=== PATIENT | male | born 1940 | race Caucasian/White ===

== ENCOUNTER 2018-02-18 06:38 | Emergency (ER) | payer MEDICARE ==
[2018-02-18] MEDS ORDERED: Ketorolac Tromethamine 30 MG/ML VIAL ONE (07:15)
[2018-02-18] MEDS ORDERED: Diazepam 5 MG TAB ONE (07:15)
--- NOTE | 2018-02-18 08:47 | CT ---
CT LUMBAR SPINE WITHOUT CONTRAST: Date: 02/18/18 HISTORY: Chronic pain. COMPARISON: None. 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 Multiple calcifications of the right kidney. Multiple hypodensit ies. No retroperitoneal adenopathy. Aortic contour is nonaneurysmal. There is a compression fracture of L1 which does extend to the anterior vertebral body through the villegas perior end plate, which does extend to the posterior vertebral body wall. There is 1.0 mm retrolisthe sis. 10% anterior height loss. There is narrowing of the L3-L5 interspinous space with sclerosis and some cortical cyst formation. C ircumferential disc bulge at L3-4, L4-5, and L5-S1. Multilevel neural foraminal narrowing. IMPRESSION: Relatively acute L1 compression fracture extending from the anterior to the posterior vertebral solano with 10% anterior height loss and 1.0 mm retrolisthesis. POS: [facility]
== END 2018-02-18 08:30 | disposition home or self-care (01) ==
LOC: SCSER 06:38
DX: S32.019A Unspecified fracture of first lumbar vertebra, initial encounter for closed fracture (principal); I10 Essential (primary) hypertension; Z79.899 Other long term (current) drug therapy; W19.XXXA Unspecified fall, initial encounter
CPT/HCPCS: 72131; 96372; J1885

== ENCOUNTER 2018-03-27 15:34 | Outpatient (CLI) | payer MEDICARE ==
--- NOTE | 2018-03-27 16:54 | RAD ---
TWO VIEWS LUMBAR SPINE: 03/27/18 INDICATION: Low back pain. COMPARISON: Prior CT lumbar spine dated 02/18/18. FINDINGS: The mild superior end plate compression fracture of L1 appears unchanged from the comparison CT. Mult ilevel spondylosis is stable. Spinal alignment appears within normal limits. IMPRESSION: 1. Stable mild superior end plate compression abnormality of L1. 2. Stable spondylosis of the lumbar spine. POS: [facility]
== END 2018-03-27 15:35 | disposition home or self-care (01) ==
LOC: TBSIIMAG 15:34
PROVIDERS: ATTEND Neurological Surgery
DX: S22.008A Other fracture of unspecified thoracic vertebra, initial encounter for closed fracture (principal); M47.816 Spondylosis without myelopathy or radiculopathy, lumbar region; R93.7 Abnormal findings on diagnostic imaging of other parts of musculoskeletal system
CPT/HCPCS: 72100

== ENCOUNTER 2018-05-22 09:08 | Outpatient (CLI) | payer MEDICARE ==
--- NOTE | 2018-05-22 10:14 | RAD ---
LUMBAR SPINE TWO VIEWS: History: Follow up compression fracture. Unspecified thoracic vertebrae. Comparison: Lumbar films, 03-27-18 FINDINGS: The compression deformity involving the L1 vertebra is again noted. There is superior endplate compre ssion with loss of central and anterior height estimated at 25-30%. The compression deformity at this vertebra appears stable when compared to 03-27-18. No significant retropulsion. The other lumbar vertebrae maintain normal height. Degenerative changes are again noted. IMPRESSION: Compression deformity at L1 appears stable. POS: [facility]
== END 2018-05-22 09:09 | disposition home or self-care (01) ==
LOC: TBSIIMAG 09:08
PROVIDERS: ATTEND Neurological Surgery
DX: S22.008A Other fracture of unspecified thoracic vertebra, initial encounter for closed fracture (principal)
CPT/HCPCS: 72100

== ENCOUNTER 2021-08-30 14:08 | Outpatient (CLI) | payer MEDICARE | END 2021-08-30 14:09 | disposition home or self-care (01) | LOC: BICRAD 14:08 | PROVIDERS: ATTEND Family Medicine | DX: Z87.81 Personal history of (healed) traumatic fracture (principal) | CPT/HCPCS: 71046 ==